=== PATIENT | female | born 1965 | race Caucasian/White ===

== ENCOUNTER 2024-12-08 12:59 | Emergency (ER) | payer OTHER, SELFPAY ==
[2024-12-08] MEDS: CARDIZEM 15 MG IV (13:52)
[2024-12-08] MEDS: NSS 1000 IV (13:53)
[2024-12-08 13:55] LABS: Hematocrit 45.0 % (37.0-47.0); Hemoglobin 16.3 g/dL (12.0-16.0); Mean Corp Hgb Conc. 36.2 g/dL (33.0-37.0); Mean Corpuscular Volume 87.9 fL (81.0-99.0); Nucleated Red Blood Cells % 0 %; Platelet Count 294 10^3/uL (130-400); Red Cell Dist. Width 11.9 % (11.5-14.5)
--- NOTE | 2024-12-08 14:09 | ED.GENMED ---
History of Present Illness
General
Chief Complaint: Dizziness
Time Seen by Provider: 12/08/24 13:30
History of Present Illness
History of Present Illness:
59-year-old female with 1 prior episode of A-fib in 2021 presenting to the emergency department for dizziness and palpitations. Patient reports last evening she went out drinking, which is not typical for her. When she woke up this morning she
felt 'hung over '. Prior to arrival she had an episode of vomiting, and then started to feel very dizzy and lightheaded with numbness to her fingers. She reports similar symptoms in 2021 at which time she had an episode of A-fib. At that time
A-fib was thought to be triggered from pain due to a ureteral stone. Patient converted on a diltiazem drip and was discharged on oral diltiazem. No anticoagulation at that time due to low [id number] score. Patient reports no prior episodes
since then. Denies associated shortness of breath or chest pain. Denies any fever or recent illness. She reports that she felt in her usual state of health yesterday. Denies additional acute medical complaints
Past History
Past History
ED Past Medical History: Cancer (Right conjunctival melanoma), Psychiatric (Anxiety) and Other (Sepsis with Haemophilus influenza pneumonia, meningitis, acute otitis media on the right with mastoiditis)
ED Past Surgical History: Other (Right myringotomy)
Patient has exhibited threatening behavior?: No
Social History
Tobacco: Non-smoker
Alcohol: Occasional
Drug: None
Personal: Other (Seperated)
Living: with family
Employment: Not employed
Family History
Family History: Other (Noncontributory)
Phy Exam
Physical Exam
Physical Exam:
General: Well-appearing, no clinical signs of dehydration, nontoxic and in no acute distress
HEENT: protecting airway
Neck: appears supple
CV: Irregular irregular rhythm, tachycardic no evidence of cyanosis
Resp: No accessory muscle use, no increased work of breathing, lungs clear to auscultation bilaterally
Abd: No distention
Extremities: No deformities, no swelling
Neuro: alert, no focal neurologic deficit
: deferred
Rectal: deferred
Psych: Normal affect
Skin: Intact
Scores
[id number] Score for Afib Stroke Risk
Age in Years (65=0, 65-74=1, >/=75=2): <65
Sex (Female=+1): Female
Congestive Heart Failure History (Yes=+1): No
Hypertension History (Yes=+1): No
Stroke/TIA/Thromboembolism History (Yes=+2): No
Vascular Disease History (Yes=+1): No
Diabetes Mellitus (Yes=+1): No
Score: 1
Anticoagulation Recommendations: Consider anticoagulation (as validated in nonvalvular fib)
Course
Orders/Labs/Results
Orders:
Orders
12/08/24 13:01
Electrocardiogram (*1) Urgent
Reason for Study: Chest Pain
12/08/24 13:02
EKG- Treatment ONCE
12/08/24 13:42
0.9% Sodium Chloride 1000 ml [Nss] 1,000 ml IV BOLUS
Diltiazem HCl [Cardizem] 15 mg IV NOW STA
12/08/24 13:49
Complete Blood Count/With Diff Urgent
Comprehensive Metabolic Panel Urgent
Magnesium Urgent
12/08/24 14:15
Diltiazem 125 mg/125 ml Nss [Cardizem] 125 mg in 125 ml IV PER PROTOCOL
Currently infusing. Continue current dose and titrate:: Yes
Titrate to keep:: Heart rate 80-100 bpm
Titrate by mg/hr:: 5 mg/hr
Frequency of titrations (minutes):: 15
Maximum dose in mg/hr:: 15
12/08/24 15:11
Propofol [Diprivan] 20 ml .ROUTE .STK-MED
Abnormal Lab Results
12/08/24
13:49
Hgb 16.3 H g/dL
(12.0-16.0)
MCH 31.8 H pg
(27.0-31.0)
Glucose 108 H mg/dl
(70-99)
Calcium 10.7 H mg/dl
(8.4-10.2)
Total Protein 8.3 H g/dl
(6.3-8.2)
Albumin 5.2 H g/dl
(3.5-5.0)
12/08/24 13:49
12/08/24 13:49
Vital Signs
Initial and Last Documented VS:
Initial Vital Signs
Temp Pulse Resp BP Pulse Ox
98.2 F 128 16 160/136 99
12/08/24 13:03 12/08/24 13:03 12/08/24 13:03 12/08/24 13:03 12/08/24 13:03
Last Documented Vital Signs
Temp Pulse Resp BP Pulse Ox
98.1 F 70 15 131/77 97
12/08/24 15:37 12/08/24 15:37 12/08/24 15:37 12/08/24 15:37 12/08/24 15:37
Procedures
Cardioversion
Indication:: Afib
Performed by:: Silvana Mcneil DO
Synchronized?: Yes
Energy Used: 200 joules
Number of attempts: 1
Successful?: Yes
Complications: none
ASA Risk Score: Class I
Any reaction or bad outcome to prior sedation/anesthesia?: No history of a reaction
Sedation level to be attained: moderate
Chart and allergies reviewed: Yes
Patient reassessed prior to sedation: Yes
Time out completed at (validating right patient & procedure): 15:25
History of difficult intubation: No
Airway free of obstruction: Yes
Patient has a gag reflex: Yes
Patient is able to open mouth: Yes
Patient has no dentures: Yes
Patient has no loose teeth: Yes
Medication administered by Provider during Moderate Sedation: IV Propofol (mg)
Total dose administered: 90
Time drug administered: 15:27
Start Time: 15:27
Stop Time: 15:40
MDM/Problems Addressed
MDM/Problems Addressed:
59-year-old female presenting to the emergency department for palpitations and dizziness. Vital signs on arrival significant for tachycardia.
On exam patient is resting comfortably, no acute distress or discomfort. EKG obtained on arrival which is with A-fib with RVR, likely etiology of patient's symptoms. Patient reports that started acutely this morning after she vomited. Suspect
likely triggered from dehydration and vomiting. On review of EMR, similar episode in 2021, thought to be triggered by pain after complicated ureteral stone. Will try dose of diltiazem and reassess response. Will screen with laboratory analysis.
15:00 - Patient did initially improve with diltiazem, however that heart rate went back up despite being on diltiazem drip. In discussion with cardiology, feel reasonable for cardioversion given onset of symptoms. Did give patient options for
continued IV drip versus cardioversion and patient opting for cardioversion.
15:40 - Cardioversion performed without incident. Please see procedure note. Plan for discharge with outpatient cardiology follow-up on oral Cardizem. Patient with low [id number] score only 1. Did communicate options of anticoagulation versus
no anticoagulation given low risk. Patient opting for no anticoagulation. The reasonable, however patient agrees to follow-up with cardiology for continued assessment
*Pulse Oximetry
SaO2: 99
Oxygen Mode of Delivery: Room air
Patient hypoxic: no
*EKG
Interpreted by ED Provider?: Yes
EKG Intrepretation Date: 12/08/24
EKG Intrepretation Time: 14:58
Interpretation: abnormal
Comparison EKG: changes noted (05/11/21)
Heart Rate: 128
Rate: tachycardiac
Rhythm: a-fib
[place]: normal axis
QRS Pattern: normal QRS
Ischemia: no ischemia
*Critical Care Note
Total Time (30-74mins, 75-104mins- exclusive of procedures): Not Applicable
ED Attending Note
-
Portions of this chart may have been created with voice recognition software.� Occasional wrong word or��sound alike� substitutions may have occurred due to the inherent limitations of voice recognition software.
Discharge Plan
Departure
Patient with high blood pressure during this ER visit?: No
Condition: Good
Discharge Problem:
Atrial fibrillation
Instructions: Atrial fibrillation (DC), MODERATE SEDATION ADULT
Prescriptions:
New
diltiazem HCl [Cardizem CD] 120 mg capsule,extended release 24hr
120 mg PO DAILY 30 Days Qty: 30 0RF
No Action
methylphenidate HCl 27 MG tablet extended release 24hr
27 mg PO DAILY
Patient Comments:
05/10/2021: LAST FILLED 05/03/21, 30 TABS FOR 30 DAYS FROM [id number]
diltiazem HCl 120 MG capsule,extended release 24hr
120 mg PO DAILY Qty: 30 11RF
aspirin 81 MG tablet,chewable
81 mg PO DAILY Qty: 30 11RF
Referrals:
Slava Hartmann DO [Active, Cardiology]
Angella Maher DO [Family Provider, Family Practice]
Activity Restrictions/Additional Instructions:
You were seen in the emergency department for elevated heart rate
You were found to have atrial fibrillation and you were cardioverted into a normal rhythm. You will need to follow-up with cardiology and take your medication as prescribed.
Please follow-up closely with your primary care physician.
Return to the emergency department for any worsening of your symptoms, or any development of chest pain, difficulty breathing, abdominal pain with persistent vomiting and inability to tolerate food or liquid by mouth (concern for dehydration),
weakness, headache or confusion, fever greater than 100.4, or any additional symptoms that are concerning to you.
Thank you for choosing [facility].
Interventions
Interventions:
*Risk Screen - Suicide Last Done: 12/08/24 13:04
*General Assessment Last Done: 12/08/24 14:00
*Neglect/Abuse Screening Last Done: 12/08/24 13:04
*ED- Fall Risk Assessment Last Done: 12/08/24 14:00
*ED COVID-19 Vaccine History Last Done: 12/08/24 14:00
ED- Neurological Assessment Last Done: 12/08/24 14:00
ED- Cardiac Assessment Last Done: 12/08/24 14:00
Discharge Date and Time
Print Language: [id number]
[2024-12-08 14:13] LABS: ALT (SGPT) 30 U/L (0-35); AST (SGOT) 30 U/L (14-36); Albumin 5.2 g/dl (3.5-5.0); Alkaline Phosphatase 99 U/L (38-126); Blood Urea Nitrogen 12 mg/dl (7-17); Calcium 10.7 mg/dl (8.4-10.2); Carbon Dioxide 23 mmol/L (22-30); Chloride 106 mmol/L (98-107); Estimated Creatinine Clearance 72 ml/min; Glucose 108 mg/dl (70-99); Magnesium 1.9 mg/dl (1.6-2.3); Potassium 4.0 mmol/L (3.5-5.1); Sodium 141 mmol/L (135-145); Total Protein 8.3 g/dl (6.3-8.2); eGFR > 60.00
[2024-12-08] MEDS: CARDIZEM 125 IV (14:21)
== END 2024-12-08 17:50 | disposition home or self-care (01) ==
LOC: EMR 12:59
PROVIDERS: EMERGENCY PHYSICIAN Student in an Organized Health Care Education/Training Program; FAMILY PHYSICIAN Family Medicine
DX: I48.91 Unspecified atrial fibrillation (principal); R42 Dizziness and giddiness
CPT/HCPCS: 92960; 99152; 96374; 96376; 96361; 99285; 80053; 83735; 85025; 93005

== ENCOUNTER → 2025-02-04 13:39 | Outpatient (REF) | payer OTHER, SELFPAY | LOC: RCS 13:39 | PROVIDERS: ATTENDING PHYSICIAN Nurse Practitioner; FAMILY PHYSICIAN Family Medicine | DX: I48.91 Unspecified atrial fibrillation (principal) | CPT/HCPCS: 93306 ==